=== PATIENT | male | born 1940 | race Caucasian/White ===

== ENCOUNTER 2017-09-26 21:28 | Emergency (ER) | payer MEDICARE ==
[~2017-09-26] VITALS: Ht 193 cm; Wt 90.7 kg
[~2017-09-26 21:28] MED LIST: ALLO100 PO; ALLO300 PO; AMOCLA875; ASPI81CH PO; ATOR40TA PO; Azopt10 ML; Azopt10 ML BOTHEYES; BUME2 PO; BUSP5 PO; CARV25 PO; Coreg12.5 MG PO; FURO20 PO; GABA300 PO; HYDACE5; HYDCHL25 PO; LATA.005SO BOTHEYES; LIDO5TP TOP; LOSA25 PO; MULVITMIND PO; Micro-K10 MEQ; Norco 5-325 Ta1 EACH PO; ONDA4ODT MM; Omeprazole20 M1 PO; POTCHL20ER PO; SPIR25 PO; TIMO.25OPS; TIMO.25OPS BOTHEYES; TRAM50 PO; TRAV.004OP BOTHEYES; Travatan Z5 ML BOTHEYES; WARF5 PO; WARF6 PO
[2017-09-26 21:59] LABS: BASOPHILS ABSOLUTE AUTO 0.05 K/mm3 (0.00-0.23); BASOPHILS PERCENT AUTO 1 % (0-2); EOSINOPHILS ABSOLUTE AUTO 0.15 K/mm3 (0.00-0.68); EOSINOPHILS PERCENT AUTO 2 % (0-6); Hematocrit 38.1 % (37.0-53.0); Hemoglobin 12.7 g/dL (13.5-17.5); IMMATURE GRAN ABSOLUTE AUTO 0.05 K/mm3 (0.00-0.10); IMMATURE GRAN PERCENT AUTO 1 % (0-1); LYMPHOCYTES ABSOLUTE AUTO 1.64 K/mm3 (0.84-5.20); LYMPHOCYTES PERCENT AUTO 21 % (21-46); MONOCYTES ABSOLUTE AUTO 0.69 K/mm3 (0.16-1.47); MONOCYTES PERCENT AUTO 9 % (4-13); Mean Corpuscular HGB 33.7 pg (26.0-34.0); Mean Corpuscular HGB Conc 33.3 g/dL (31.5-36.5); Mean Corpuscular Volume 101 fL (80-100); Mean Platelet Volume 10.6 fL (9.1-12.4); NEUTROPHILS ABSOLUTE AUTO 5.19 K/mm3 (1.96-9.15); NEUTROPHILS PERCENT AUTO 67 % (41-73); Platelet Count 109 K/mm3 (150-400); RDW Coefficient Variation 14.8 % (11.7-14.2); RDW Standard Deviation 55.5 fL (35.1-46.3); Red Blood Cell Count 3.77 M/mm3 (4.30-5.90); White Blood Cell Count 7.77 K/mm3 (4.00-11.30)
[2017-09-26 22:10] LABS: Alanine Aminotransfer (ALT/SGP 24 U/L (12-78); Albumin, Blood 3.3 g/dL (3.4-5.0); Alk Phos 79 U/L (50-136); Anion Gap 7 mmol/L (6-16); Aspartate Aminotrans (AST/SGOT 14 U/L (12-37); Bilirubin, Total 0.5 mg/dL (0.1-1.0); Blood Urea Nitrogen 24 mg/dL (8-24); Bun/Creatinine Ratio 22.2 (12.0-20.0); CO2, Blood 27 mmol/L (21-32); Calcium, Blood 8.9 mg/dL (8.5-10.1); Chloride, Blood 107 mmol/L (98-108); Creatinine, Blood 1.08 mg/dL (0.60-1.20); Globulin, Blood 3.4 g/dL (2.2-4.0); Glomerular Filtration Rate >60 (60-); Glucose, Blood 141 mg/dL (70-99); Potassium, Blood 4.1 mmol/L (3.5-5.5); Sodium, Blood 141 mmol/L (136-145); Total Protein, Blood 6.7 g/dL (6.4-8.2)
[2017-09-26] MEDS ORDERED: WARF5 PO (22:21)
[2017-09-26] MEDS ORDERED: LOSA50 PO (22:22)
[2017-09-26] MEDS ORDERED: CARV25 PO (22:22)
[2017-09-26] MEDS ORDERED: SPIR25 PO (22:22)
[2017-09-26] MEDS ORDERED: BUME2 PO (22:23)
[2017-09-26] MEDS ORDERED: Azopt10 ML BOTHEYES (22:24)
[2017-09-26] MEDS ORDERED: TIMOPTIC 0.25%1 EACH BOTHEYES (22:24)
[2017-09-26] MEDS ORDERED: LATANOPROST2.5 ML BOTHEYES (22:25)
[2017-09-26 22:45] LABS: Troponin I <0.015 ng/mL (0.000-0.040)
[2017-09-26] MEDS ORDERED: Atrovent Inha12.9 GM INH (23:32)
[2017-09-26] MEDS ORDERED: Prednisone50 MG PO (23:32)
[2017-09-26] MEDS ORDERED: ALBU90OI INH (23:32)
== END 2017-09-26 23:40 | disposition home or self-care (01) ==
LOC: ER 21:28
PROVIDERS: Emergency Medicine
DX: J44.1 Chronic obstructive pulmonary disease with (acute) exacerbation (principal); Z79.899 Other long term (current) drug therapy; Z79.01 Long term (current) use of anticoagulants; I48.91 Unspecified atrial fibrillation; I11.0 Hypertensive heart disease with heart failure; I50.9 Heart failure, unspecified; F17.290 Nicotine dependence, other tobacco product, uncomplicated
CPT/HCPCS: 36415; 71046; 80053; 83880; 84484; 85025; 93005; 93010; 94640; 96374; 99283; J1100

== ENCOUNTER 2018-11-14 18:16 | Inpatient (IN) | payer MEDICARE ==
[~2018-11-14] VITALS: Ht 188 cm; Wt 93.7 kg
[~2018-11-14 18:16] MED LIST changes: +ALBU90OI INH; +Atrovent Inha12.9 GM INH; +Prednisone50 MG PO
[2018-11-14 18:42] LABS: BASOPHILS ABSOLUTE AUTO 0.05 K/mm3 (0.00-0.23); BASOPHILS PERCENT AUTO 1 % (0-2); EOSINOPHILS ABSOLUTE AUTO 0.16 K/mm3 (0.00-0.68); EOSINOPHILS PERCENT AUTO 2 % (0-6); Hematocrit 46.6 % (37.0-53.0); Hemoglobin 15.4 g/dL (13.5-17.5); IMMATURE GRAN ABSOLUTE AUTO 0.09 K/mm3 (0.00-0.10); IMMATURE GRAN PERCENT AUTO 1 % (0-1); LYMPHOCYTES PERCENT AUTO 13 % (21-46); MONOCYTES ABSOLUTE AUTO 1.56 K/mm3 (0.16-1.47); MONOCYTES PERCENT AUTO 15 % (4-13); Mean Corpuscular HGB 29.3 pg (26.0-34.0); Mean Corpuscular Volume 89 fL (80-100); Mean Platelet Volume 10.8 fL (9.1-12.4); NEUTROPHILS ABSOLUTE AUTO 7.25 K/mm3 (1.96-9.15); NEUTROPHILS PERCENT AUTO 69 % (41-73); Platelet Count 169 K/mm3 (150-400); RDW Coefficient Variation 20.8 % (11.7-14.2); RDW Standard Deviation 66.6 fL (35.1-46.3); Red Blood Cell Count 5.25 M/mm3 (4.30-5.90); White Blood Cell Count 10.51 K/mm3 (4.00-11.30)
[2018-11-14 19:06] LABS: Albumin, Blood 3.7 g/dL (3.4-5.0); Albumin/Globulin Ratio 1.3 (0.8-1.8); Bilirubin, Total 3.2 mg/dL (0.1-1.0); Calcium, Blood 9.3 mg/dL (8.5-10.1); Creatinine, Blood 2.05 mg/dL (0.60-1.20); Globulin, Blood 2.9 g/dL (2.2-4.0); Total Protein, Blood 6.6 g/dL (6.4-8.2)
[2018-11-14 20:34] LABS: Magnesium, Blood 2.8 mg/dL (1.6-2.4); Phosphorus, Blood 5.7 mg/dL (2.5-4.9); Uric Acid, Blood 13.6 mg/dL (3.5-7.2)
[2018-11-14 20:36] LABS: International Normalized Ratio 1.36
[2018-11-14] MEDS ORDERED: LOSA25 PO (20:53)
[2018-11-14] MEDS ORDERED: FURO40 PO (20:53)
[2018-11-14] MEDS ORDERED: GLIP5 PO (20:53)
[2018-11-14] MEDS ORDERED: ALBU90OI61 INH (21:00)
[2018-11-14] MEDS ORDERED: Pacerone100 MG PO (21:00)
[2018-11-14] MEDS ORDERED: Aspirin EC81 MG PO (21:01)
[2018-11-14] MEDS ORDERED: CARV3.125 PO (21:02)
[2018-11-14] MEDS ORDERED: CLOP75 PO (21:03)
[2018-11-14] MEDS ORDERED: POTCHL10ER PO (21:04)
[2018-11-14] MEDS ORDERED: GABA600 PO (21:04)
[2018-11-14] MEDS ORDERED: Pravachol80 MG PO (21:05)
[2018-11-14] MEDS ORDERED: Zantac150 MG PO (21:06)
[2018-11-14] MEDS ORDERED: TORSE20 PO (21:07)
[2018-11-14] MEDS ORDERED: TIMOLOL MALEATE5 ML BOTHEYES (21:17)
[2018-11-14] MEDS ORDERED: LATANOPROST2.5 ML BOTHEYES (21:18)
[2018-11-14] MEDS ORDERED: Azopt10 ML BOTHEYES (21:18)
[2018-11-15 02:20] LABS: BASOPHILS ABSOLUTE AUTO 0.04 K/mm3 (0.00-0.23); BASOPHILS PERCENT AUTO 0 % (0-2); EOSINOPHILS PERCENT AUTO 1 % (0-6); Hematocrit 43.7 % (37.0-53.0); Hemoglobin 14.5 g/dL (13.5-17.5); IMMATURE GRAN ABSOLUTE AUTO 0.09 K/mm3 (0.00-0.10); IMMATURE GRAN PERCENT AUTO 1 % (0-1); LYMPHOCYTES ABSOLUTE AUTO 1.24 K/mm3 (0.84-5.20); LYMPHOCYTES PERCENT AUTO 11 % (21-46); MONOCYTES PERCENT AUTO 13 % (4-13); Mean Corpuscular HGB 29.7 pg (26.0-34.0); Mean Corpuscular HGB Conc 33.2 g/dL (31.5-36.5); Mean Corpuscular Volume 89 fL (80-100); Mean Platelet Volume 10.8 fL (9.1-12.4); NEUTROPHILS PERCENT AUTO 74 % (41-73); Platelet Count 146 K/mm3 (150-400); RDW Coefficient Variation 20.7 % (11.7-14.2); RDW Standard Deviation 67.7 fL (35.1-46.3); Red Blood Cell Count 4.89 M/mm3 (4.30-5.90); White Blood Cell Count 11.47 K/mm3 (4.00-11.30)
[2018-11-15 02:37] LABS: Bun/Creatinine Ratio 41.9 (12.0-20.0); Calcium, Blood 9.1 mg/dL (8.5-10.1); Creatinine, Blood 2.1 mg/dL (0.60-1.20); Potassium, Blood 4.7 mmol/L (3.5-5.5)
--- NOTE | 2018-11-15 07:17 | NUR ---
SHIFT SUMMARY PT SLEEPING IN ROOM COMFORTABLY AT THIS TIME. NO ACUTE CHANGES IN STATUS SINCE ARRIVAL TO UNIT. PT LACTIC ACID HAS IMPROVED. RESP EVEN UNLABORED ON RA W/ SATS >92%. DENIES CP. REPORTS L HIP PAIN BETTER WHEN NOT MOVING. PT IS SBA TO USE URINAL AT BEDSIDE. DENIES CP. NS INFUSING IN PIV AT 100ML/HR, PT TOLERATING WELL. CALL LIGHT IN REACH BED ALARM ON FOR SAFETY.
--- NOTE | 2018-11-15 08:57 | NUR ---
AM NOTE. ASSUMED CARE OF PT APROX 0700. PT IS A&Ox3 UNABLE TO STATE THE DATE. PT IS VERY UPSET/ANGRY THAT HIS CURRENT SITUATION AND HIS MOMENTS OF CONFUSION. PT WAS ADMITTED FOR MANE, PT HAS 4+ PITTING EDEMA TO HIS BLE. PT'S L/S CLEAR T/O BUT DIM IN THE BASES. BED ALARM IS ON TO PREVENET FALLS. CALL LIGHT IN REACH, BED IS LOCKED AND LOW WILL CONTINUE TO MONITOR.
[2018-11-15 15:23] LABS: Bun/Creatinine Ratio 42.9 (12.0-20.0); Creatinine, Blood 1.96 mg/dL (0.60-1.20); Potassium, Blood 4.1 mmol/L (3.5-5.5)
--- NOTE | 2018-11-15 18:32 | NUR ---
SHIFT SUMMARY. NO ACUTE CHANGES NOTED THIS SHIFT. PT HAS BEEN HYPOTENSIVE THIS SHIFT BUT NOT SYMPTOMATIC. PT HAS STATED MULTIPLE TIMES THIS SHIFT "I JUST DON'T FEEL GOOD." PT C/O OF NAUSEA, PT WAS MEDICATED PER EMAR. PT ALSO C/O OF "BURNING" IN HIS MOUTH, PROVIDER WAS CALLED AND ORDERS OBTAINED. PT STILL C/O OF SEVERE PAIN TO HIS LEFT HIP, PT WAS MEDICATED PER EMAR, HOWEVER PT STATED THAT "IT DIDN'T HELP." HEAT AND COLD PACKS WERE APPLIED BUT AGAIN PT STATED IT DID NOT HELP. BACK MASSAGE WAS PROVIDED TO THE PT THIS SHIFT. CALL LIGHT IN REACH, BED IS LOCKED AND LOW WILL CONTINUE TO MONITOR.
--- NOTE | 2018-11-15 19:45 | NUR ---
ASSUMED CARE PT SLEEPING IN ROOM COMFORTABLY AT THIS TIME. PER DAY SHIFT PT HAD NO ACUTE CHANGES IN STATUS. PT WAS HYPOTENSIVE T/O DAY AND CORREG WAS HELD PER PARAMETERS. PT EDEMA ON BLE APPEARS TO HAVE INCREASED. PT REFUSING TO HAVE LEGS ELEVATED FURTHER, WILL ATTEMPT AGAIN LATTER. PT REPORTED SORE THROAT, TODAY. PER DAY SHIFT PROVIDER ORDERED MAGIC MOUTHWASH, PT TOLERATES FAIR. RESP EVEN UNLABORED ON RA W/ SATS >92%. DENIES NEEDS. CALL LIGHT IN REACH.
[2018-11-16 04:00] LABS: BASOPHILS ABSOLUTE AUTO 0.02 K/mm3 (0.00-0.23); BASOPHILS PERCENT AUTO 0 % (0-2); EOSINOPHILS ABSOLUTE AUTO 0.12 K/mm3 (0.00-0.68); EOSINOPHILS PERCENT AUTO 1 % (0-6); Hematocrit 42.9 % (37.0-53.0); Hemoglobin 14.3 g/dL (13.5-17.5); IMMATURE GRAN ABSOLUTE AUTO 0.09 K/mm3 (0.00-0.10); IMMATURE GRAN PERCENT AUTO 1 % (0-1); LYMPHOCYTES ABSOLUTE AUTO 1.08 K/mm3 (0.84-5.20); LYMPHOCYTES PERCENT AUTO 10 % (21-46); MONOCYTES ABSOLUTE AUTO 1.46 K/mm3 (0.16-1.47); MONOCYTES PERCENT AUTO 14 % (4-13); Mean Corpuscular HGB 28.9 pg (26.0-34.0); Mean Corpuscular HGB Conc 33.3 g/dL (31.5-36.5); Mean Corpuscular Volume 87 fL (80-100); Mean Platelet Volume 11.1 fL (9.1-12.4); NEUTROPHILS PERCENT AUTO 74 % (41-73); Platelet Count 138 K/mm3 (150-400); RDW Coefficient Variation 20.8 % (11.7-14.2); RDW Standard Deviation 63.7 fL (35.1-46.3); Red Blood Cell Count 4.95 M/mm3 (4.30-5.90); White Blood Cell Count 10.77 K/mm3 (4.00-11.30)
[2018-11-16 04:16] LABS: Bun/Creatinine Ratio 45.4 (12.0-20.0); Calcium, Blood 8.7 mg/dL (8.5-10.1); Creatinine, Blood 1.74 mg/dL (0.60-1.20); Magnesium, Blood 2.3 mg/dL (1.6-2.4)
--- NOTE | 2018-11-16 05:34 | NUR ---
SHIFT SUMMARY PT SLEEPING IN ROOM COMFORTABLY AT THIS TIME. NO ACUTE CHANGES IN STATUS T/O NIGHT. PT DID HAVE A SHORT NOSE BLEED DURING THE NIGHT. PT REPORTS "THIS HAPPENS EVERY TIME THEY GIVE ME ASPIRIN, I DON'T WANT ANY MORE!". NO OTHER CHANGES IN STATUS. PT SLEPT WELL T/O NIGHT. NS FINISHED INFUSING AND PT NOW SL. RESP EVEN UNLABORED ON RA W/ SATS >92%. PT DENIES CP, REPORTS SOME MINOR PAIN TO L HIP BUT REFUSED PAIN MEDS, PT REPORTS "NONE OF THAT WORKS FOR ME ANYWAY". PT REPOSITIONED FOR COMFORT, REPORTS PAIN LESSENED. DENIES OTHER NEEDS. CALL LIGHT IN REACH.
[2018-11-16 10:18] LABS: Uric Acid, Blood 12.6 mg/dL (3.5-7.2)
--- NOTE | 2018-11-16 18:33 | NUR ---
SHIFT SUMMARY. PT HAS BEEN VERY TIRED ALL SHIFT. PT HAS SLEPT OFF AND ON FOR MOST OF THE SHIFT. PT'S BP HAS BEEN HYPOTENSIVE, PT'S DAUGHTER STATES THIS IS NORMAL FOR HIM. PT HAS C/O OF SEVERE PAIN T/O THIS SHIFT. PT HAS BEEN MEDICATED PER EMAR. PROVIDER AND PALLIATIVE CARE ALSO INVOLVED IN AN ATTEMPT TO HELP WITH PAIN CONTROL. NEW ORDERS OBTAINED AND WILL MEDICATE THE PT PER ORDERS/EMAR. PT GOT UP AND WALKED TO THE BATHROOM W/FWW, PT HAD TO STOP MULTIPLE TIMES TO REST BEFORE MAKING IT TO THE TOILET. PT DID NOT HAVE A BM TODAY. CALL LIGHT IN REACH, BED IS LOCKED AND LOW WITH BED ALARM ON WILL CONTINUE TO MONITOR UNTIL REPORT IS GIVEN TO ONCOMING RN.
[2018-11-16 20:40] LABS: Potassium, Blood 3.8 mmol/L (3.5-5.5)
[2018-11-16 22:32] LABS: Source, Urine Clean Catch
[2018-11-16 22:37] LABS: Bilirubin, Urine Neg (Neg); Blood, Urine Neg (Neg); Glucose Qualitative, Urine Neg (Neg); Ketones, Urine Neg (Neg); Leukocyte Esterase, Urine 1+ (Neg); Nitrite, Urine Neg (Neg); Protein, Urine Neg (Neg); Specific Gravity, Urine 1.015 (1.003-1.022); Urobilinogen, Urine NORM (Normal)
[2018-11-16 22:43] LABS: Appearance, Urine Clear (Clear); Color, Urine Yellow (P-Yellow)
[2018-11-16 22:44] LABS: Bacteria Few /hpf; Hyaline Casts 0-2 /lpf (0-2); Red Blood Cells, Urine Not Seen /hpf (0-2); Squamous Epithelial Cells Rare /hpf (Few); White Blood Cells, Urine 0-2 /hpf (0-5)
--- NOTE | 2018-11-17 02:16 | NUR ---
ASSUMED CARE OF PATIENT AT [facility] 191 FROM VERÓNICA Crooks RN. PATIENT ALERT AND ORIENTED TO SELF, LOCATION AND EVENT. PATIENT VERY HARD OF HEARING; CAN BE SLOW TO RESPOND; PATIENT CONFUSED AT TIMES. PATIENT WEAK; LEGS HAVE PITTING EDEMA. PATIENT REPORTS PAIN; REQUESTED "NERVE PILL"; PATIENT HAS SCHEDULED GABAPENTIN FOR PM; REFUSED NEED FOR PAIN MEDICATION; PATIENT DENIES NUMBNESS, TINGLING, DIZZINESS AND NAUSEA. PATIENT UNCOMFORTABLE FIRST PART OF SHIFT; REQUESTED TO BE REPOSISTIONED FREQUENTLY AND TO HAVE FOAM REMOVED FROM BED. PATIENT MADE COMMENT ABOUT BEING "TIRED OF ALL THIS". DR. BHAT CALLED SHORTLY AFTER 2100; ORDERS RECIEVED; SODIUM 125 FROM 124; POTASSIUM DROPPED TO 3.8; 24 HOUR URINE STARTED AT 0130; REPORTED DURING DAYSHIFT THAT PATIENT HAD 250ML AND TWO UNMEASURED URINE; PATIENT HAS HAD 900ML URINE; UA SENT. PATIENT REPORTS WHEN GIVING IV LASIX THAT "THAT'S WHAT CAUSED MY LEGS TO QUICK WORKING". PACED ON TELE; OXYGEN SATURATION ABOVE 90% ON ROOM AIR; PIV S/L. PATIENT ON 1000ML FLUID RESTRICTION. PATIENT CURRENTLY RESTING IN BED; CALL LIGHT IN REACH; BED IN LOWEST POSISTION; BED ALARM; WILL CONTINUE TO MONITOR AND ASSESS UNTIL END OF SHIFT.
[2018-11-17 04:18] LABS: Hematocrit 43.2 % (37.0-53.0); Hemoglobin 14.3 g/dL (13.5-17.5)
[2018-11-17 04:32] LABS: Albumin, Blood 3.3 g/dL (3.4-5.0); Anion Gap 12 mmol/L (6-16); Blood Urea Nitrogen 68 mg/dL (8-24); CO2, Blood 24 mmol/L (21-32); Calcium, Blood 8.7 mg/dL (8.5-10.1); Chloride, Blood 90 mmol/L (98-108); Creatinine, Blood 1.58 mg/dL (0.60-1.20); Glomerular Filtration Rate 45 (60-); Glucose, Blood 130 mg/dL (70-99); Magnesium, Blood 2.3 mg/dL (1.6-2.4); Phosphorus, Blood 2.8 mg/dL (2.5-4.9); Potassium, Blood 3.2 mmol/L (3.5-5.5); Sodium, Blood 126 mmol/L (136-145)
--- NOTE | 2018-11-17 18:44 | NUR ---
SHIFT SUMMARY PT RESTING IN BED THROUGHOUT THE DAY. UP TO RECLINER FOR MEALS, PT TOLERATING WELL. VSS. ALERT AND ORIENTED X3. C/O BACK / HIP PAIN 10/22, MEDICATED WITH PRN PAIN MEDS. LUNG SOUNDS CLEAR, DIMINISHED BASES. 3+ PITTING EDEMA TO BLE. WILL CONTINUE TO MONITOR.
[2018-11-17 20:32] LABS: Potassium, Blood 3.3 mmol/L (3.5-5.5)
--- NOTE | 2018-11-18 01:21 | NUR ---
ASSUMED CARE OF PATIENT AT [facility] 191 FROM AHSAN Crooks RN. PATIENT ALERT AND ORIENTED TO SELF, LOCATION AND EVENT. PATIENT VERY HARD OF HEARING; CAN BE SLOW TO RESPOND; IRRITABLE AT TIMES. PATIENT WEAK; BLE EDEMA; PATIENT REPORTS LEGS LOOK BETTER AND "I CAN LIFT MY LEGS". PATIENT REPORTS "FEELS LIKE MY MOUTH IF FULL OF BLISTERS"; NO BLISTERS NOTED; REPORTS HE HAD SOMETHING LIKE THIS BEFORE AND NEEDED ANTIBIOTICS; REFUSED PRN MEDICATION; ENCOURAGED PATIENT TO BRUSH TEETH; PATIENT REPORTS FEELING BETTER; PATIENT DENIES PAIN, NUMBNESS, TINGLING, DIZZINESS AND NAUSEA. PATIENT REPORTS SMALL AMOUNT OF BLOOD COMING FROM NOSE ONCE. CALL PLACED TO DR. BHAT PER REQUEST AFTER 2100; ORDERS RECIEVED; SODIUM 124; POTASSIUM 3.3; 24 HOUR URINE WILL BE COMPLETED AT 0130. PACED ON TELE; OXYGEN SATURATION ABOVE 90% ON ROOM AIR; PIV S/L. PATIENT ON 1000ML FLUID RESTRICTION. PATIENT CURRENTLY RESTING IN BED; CALL LIGHT IN REACH; BED IN LOWEST POSISTION; BED ALARM; WILL CONTINUE TO MONITOR AND ASSESS UNTIL END OF SHIFT.
[2018-11-18 02:52] LABS: Protein, Urine Quantitative <5.0 mg/dL (0.0-11.9)
[2018-11-18 04:08] LABS: Hematocrit 45.8 % (37.0-53.0); Hemoglobin 15.1 g/dL (13.5-17.5)
[2018-11-18 04:27] LABS: Magnesium, Blood 2.3 mg/dL (1.6-2.4)
[2018-11-18 04:28] LABS: Albumin, Blood 3.4 g/dL (3.4-5.0); Anion Gap 10 mmol/L (6-16); Blood Urea Nitrogen 59 mg/dL (8-24); Bun/Creatinine Ratio 42.1 (12.0-20.0); CO2, Blood 24 mmol/L (21-32); Calcium, Blood 8.8 mg/dL (8.5-10.1); Chloride, Blood 91 mmol/L (98-108); Glomerular Filtration Rate 52 (60-); Glucose, Blood 153 mg/dL (70-99); Phosphorus, Blood 2.8 mg/dL (2.5-4.9); Potassium, Blood 3.4 mmol/L (3.5-5.5); Sodium, Blood 125 mmol/L (136-145)
--- NOTE | 2018-11-18 06:20 | NUR ---
PATIENT REPORTED THIS MORNING THAT HE DIDNT FEEL GOOD; REPORTED HE FELT LIKE HE WAS GOING TO THROW UP; MEDICATED PER EMAR; REPORTS FEELING BETTER. VSS. NO OTHER ACUTE CHANGES TO REPORT. PATIENT SLEPT ABOUT EIGHT HOURS LAST NIGHT. 24 HOUR URINE PROTIEN COMPLETE. WILL CONTINUE TO MONITOR AND ASSESS UNTIL END OF SHIFT.
[2018-11-18 16:15] LABS: Potassium, Blood 4.3 mmol/L (3.5-5.5)
--- NOTE | 2018-11-18 18:34 | NUR ---
SHIFT SUMMARY NO ACUTE CHANGES THIS SHIFT. VSS. PT INTERMITTENTLY NAUSEATED T/O SHIFT. RECEIVING REGLAN AND ZOFRAN PRN. NO EMESIS. DECREASED APPETITE. PT DID RECEIVE BOWEL CARE SUPPOSITORY AND ENEMA AND DID HAVE 2 BMS. UP WITH 1 SBA USING THE WALKER TO THE BSC. PT DENIES PAIN. LUNG SOUNDS CLEAR BUT DIMINISHED IN THE BASES. POTASSIUM GIVEN TODAY WITH REPEAT LABS IN THE MORNING. LOW URINE OUTPUT. DR. BHAT NOTIFIED AND NEW ORDERS PLACED. PT USES CALL LIGHT APPROPRIATELY.
--- NOTE | 2018-11-18 22:13 | NUR ---
ASSUMED CARE OF PATIENT AT [facility] 1910 FROM YAHAIAR Lujan RN. PATIENT ALERT AND ORIENTED TO SELF, LOCATION AND EVENT. PATIENT VERY HARD OF HEARING; CAN BE SLOW TO RESPOND; IRRITABLE AT TIMES. PATIENT WEAK; BLE EDEMA. PATIENT INCONTINENT OF SMALL AMOUNTS OF STOOL; ATTENDS PLACED; URGENCY TO GO BUT MOSTLY HAS GAS; PATIENT REPORTEDLY HAD 2 BM TODAY AFTER BOWEL CARE; PCT KASEY REPORTS HEMORRHOIDS. PATIENT DENIES PAIN, NUMBNESS, TINGLING, DIZZINESS AND NAUSEA. 100% PACED ON TELE; OXYGEN SATURATION ABOVE 90% ON ROOM AIR; PIV S/L. PATIENT ON 1000ML FLUID RESTRICTION. PATIENT CURRENTLY RESTING IN BED; CALL LIGHT IN REACH; BED IN LOWEST POSISTION; BED ALARM; WILL CONTINUE TO MONITOR AND ASSESS UNTIL END OF SHIFT.
[2018-11-19 03:51] LABS: Hematocrit 44.2 % (37.0-53.0); Hemoglobin 14.4 g/dL (13.5-17.5)
[2018-11-19 04:08] LABS: Albumin, Blood 3.3 g/dL (3.4-5.0); Anion Gap 10 mmol/L (6-16); Blood Urea Nitrogen 65 mg/dL (8-24); Bun/Creatinine Ratio 40.9 (12.0-20.0); CO2, Blood 25 mmol/L (21-32); Calcium, Blood 8.8 mg/dL (8.5-10.1); Chloride, Blood 90 mmol/L (98-108); Creatinine, Blood 1.59 mg/dL (0.60-1.20); Glomerular Filtration Rate 45 (60-); Glucose, Blood 139 mg/dL (70-99); Magnesium, Blood 2.2 mg/dL (1.6-2.4); Phosphorus, Blood 2.9 mg/dL (2.5-4.9); Potassium, Blood 3.7 mmol/L (3.5-5.5); Sodium, Blood 125 mmol/L (136-145)
--- NOTE | 2018-11-19 06:51 | NUR ---
PATIENT SLEPT ABOUT EIGHT HOURS; INCONTINENT OF URINE ONCE LAST NIGHT; VSS. PATIENT CURRENTLY SITTING IN RECLINER. WILL CONTINUE TO MONITOR AND ASSESS UNTIL END OF SHIFT.
--- NOTE | 2018-11-19 19:23 | NUR ---
SHIFT SUMMARY PT RESTING IN BED THROUGHOUT THE DAY. VSS. ALERT AND ORIENTED, KNOWS THE MONTH, BUT STATES THAT IT IS 2018. REORIENTED EASILY AND FOLLOWING COMMANDS APPROPRIATELY. PT IS VERY HARD OF HEARING AND GET IRRITATED EASILY. C/O LEFT HIP / BACK PAIN 10/22, MEDICATED WITH PRN PAIN MEDS. LUNG SOUNDS DIMINISHED THROUGHOUT. C/O NUMBNESS / TINGLING TO BILATERAL FEET. 2+ PITTING EDEMA TO BLE, 1+ PITTING EDEMA TO BILATERAL FEET, AND NON-PITTING EDEMA TO BILATERAL ARMS. PT UP TO BEDSIDE COMMODE FOR BM TODAY, PT HAD A HARD LARGE STOOL, NEW ORDERS FOR STOOL SOFTENERS RECEIVED. LARGE HEMORRHOID NOTED, HEMORRHOID CREAM APPLIED. PACED RATE OF 60s ON TELEMETRY. VOIDING PER BEDSIDE COMMODE AND URINAL. PT C/O NAUSEA THROUGHOUT THE DAY, MEDICATED WITH PRN MEDS. PT NOTED TO HAVE VERY POOR APPETITE TODAY D/T NAUSEA.
[2018-11-20 03:32] LABS: Hematocrit 46.3 % (37.0-53.0); Hemoglobin 15.2 g/dL (13.5-17.5)
[2018-11-20 03:51] LABS: Albumin, Blood 3.3 g/dL (3.4-5.0); Anion Gap 12 mmol/L (6-16); Blood Urea Nitrogen 69 mg/dL (8-24); Bun/Creatinine Ratio 36.3 (12.0-20.0); CO2, Blood 24 mmol/L (21-32); Calcium, Blood 8.7 mg/dL (8.5-10.1); Chloride, Blood 84 mmol/L (98-108); Glomerular Filtration Rate 36 (60-); Glucose, Blood 149 mg/dL (70-99); Magnesium, Blood 2.2 mg/dL (1.6-2.4); Phosphorus, Blood 3.7 mg/dL (2.5-4.9); Potassium, Blood 4.4 mmol/L (3.5-5.5); Sodium, Blood 120 mmol/L (136-145)
--- NOTE | 2018-11-20 04:53 | NUR ---
END OF SHIFT SUMMARY PT ALERT AND SPEAKING WITH STAFF. STATES CORRECT DATE SOMETIMES BUT GENERALLY FORGETS MONTH OR YEAR. PT HAS BEEN IRRITABL BUT COOPERATIVE. PT EXPRESSES NEEDS TO NURSE APPROPRIATELY. THIS NURSE HAS BEEN MEDICATING PT'S HIP PAIN WITH TRAMADOL PER ORDERS. PT CONTINUES TO COMPLAIN ABOUT PAIN. PT HAS BEEN TURNED THIS SHIFT MULTIPLE TIMES HE MAKES LITTLE EFFORT AT TIMES TO MOVE R/T HIP AND THE FACT THAT HE HAS A REDDENED AREA ON COCCYX, MEPILEX IN PLACE ON COCCYX AND BILAT ELBOWS PRECAUTION. PT REMIANS ON 1200L FLUID RESTRICTION, DOES NOT TOLERATE THIS WELL AND BECOMES IRATE ABOUT IT AT TIMES. THIS RN SPOKE WITH DAUGHTER. STEVEN, ABOUT PT. DAUGHTER STATES THE REASON THIS PT ISN'T ON NARCOTIC PAIN MEDS IS THAT HE WAS "EXTREMELY ADDICTED TO THEM AND HAD TO GO THROUGH [facility] TO GET OF OF THEM WITHIN THE LAST TWO YEARS." DAUGHTER ALSO STATES THAT HE DOESN'T REACT WELL TO THEM MENTALLY/PHYSICALLY. PT AWARE OF PAIN MEDICATION LIMITATIONS WOTH HIS MANE. PT USES CALL LIGHT APPROPRIATELY. CALL LIGHT WITHIN REACH AT ALL TIMES. WILL CONTINUE TO MONITOR PT UNTIL SHIFT CHANGE. LABS NOTED TO SHOW INCREASED CREATININE AND LOWERED NA, AWAITING TO SEE IF DR BHAT PLACES ORDERS, IF NOT WILL CALL
--- NOTE | 2018-11-20 07:32 | NUR ---
HOME BHAT VIEWS LABS. PLACES ORDERS TO INCREAS BUMEX DOSING TO TID FROM BID. IMNCREASES FLUID RESTRICTION TO 1300ML FROM 1200ML.
--- NOTE | 2018-11-20 18:37 | NUR ---
called by shoaib to review pain care. strategies given gabipentin advanced and prn med give. Theraputic talk and touch with patient. he refused cold or heat will encourage lidocain. Hope is with medication he will mobilize and get relief.
--- NOTE | 2018-11-20 18:39 | NUR ---
END OF SHIFT SUMMARY; PT VERY PAINFULL MUCH OF DAY. WRITHING ON BED. ICE HEAT AND TRAMADOL TRIED WITH MINIMAL RESULTS. PT NOTED TO BE BEGGING STAFF FOR PAIN MEDICATION OR PAIN RELIEF OF ANY KIND DURING DAY. IS CALLED AND ALEAH PALLIATIVE CARE COMES TO PATIENT ROOM TO EVAL PATIENT. PT APPEARS TO HAVE DELIRIUM FROM PAIN TODAY. IS TRYING TO GET OUT OF BED. HOWEVER PATIENT IS UNABLE TO STAND AND IS FALL RISK. INCREASES GABAPENTIN TO TID AND ORDERS ONE HYDROCODONE 10/325 PO NOW FOR PAIN. PT IS ABLE TO EAT DINNER AND IS NOTED TO BE RESTING COMFORTABLY WITHIN MINIUTES OF RECEIVING THIS PAIN MEDICATION. HE IS ABLE TO ASSIST WITH TURNS AND EATS MUCH OF EVENING MEAL. WILL PASS ON TO NOC SHIFT IN REPORT.
--- NOTE | 2018-11-21 04:59 | NUR ---
Patient administration intern light frequently to be pulled up and reposition. Patient reposition every two hours and sometimes hourly. Patient appears slightly confused on times. Used emesis bag to urinate in. Patient had a large incotinence in bed. Bedding change and patient cleaned of incotinence. Patient able to assist in bed slightly. Patient very weak and is a two assist in bed. Patient has tossed his feet out of bed twice attempting to sit up at bedside. Bed alarm on.
--- NOTE | 2018-11-21 06:27 | NUR ---
DR. BHAT IN ROOM ORDER FOR STAT LABS ( H&H, RENAL, MAG) AND TO BLADDER SCAN AND CALL FOR >200. PATIENT BLADDER SCAN IS 117CC.
[2018-11-21 06:54] LABS: Hematocrit 46.4 % (37.0-53.0); Hemoglobin 15.3 g/dL (13.5-17.5)
[2018-11-21 07:13] LABS: Magnesium, Blood 2.4 mg/dL (1.6-2.4)
[2018-11-21 07:33] LABS: Albumin, Blood 3.3 g/dL (3.4-5.0); Anion Gap 16 mmol/L (6-16); Blood Urea Nitrogen 81 mg/dL (8-24); Bun/Creatinine Ratio 33.5 (12.0-20.0); CO2, Blood 20 mmol/L (21-32); Calcium, Blood 8.8 mg/dL (8.5-10.1); Chloride, Blood 82 mmol/L (98-108); Creatinine, Blood 2.42 mg/dL (0.60-1.20); Glomerular Filtration Rate 28 (60-); Glucose, Blood 132 mg/dL (70-99); Phosphorus, Blood 4.7 mg/dL (2.5-4.9); Potassium, Blood 4.7 mmol/L (3.5-5.5)
[2018-11-21 07:45] LABS: Sodium, Blood 118 mmol/L (136-145)
--- NOTE | 2018-11-21 07:55 | NUR ---
PT TO BE TRANSFERRED TO ICU. ATTEMPT TO CALL REPORT. MONICO MCCORMICK WILL CALL BACK.
--- NOTE | 2018-11-21 08:08 | NUR ---
CRITICAL LAB CALLED TO SODIUM 118. TRANSFER PATIENT TO ICU. GIVE 3% SODIUM 25ML/HR. STAT LABS 2 HOURS AFTER START OF INFUSION CALL HOME WITH RESULTS.
--- NOTE | 2018-11-21 09:00 | NUR ---
INITIAL ASSESSMENT PATIENT ARRIVED TO UNIT AT 0835 FROM PCU 07. PATIENT IRRITABLE, ANXIOUS BUT COOPERATIVE. PATIENT ALERT AND ORIENTED EXCEPT TO DATE AND EVENT. PATIENT VERY [place]. PATIENT AFEBRILE. PATIENT HAS PAIN IN L HIP BUT SEEMS MUCH MORE CONCERNED WITH GETTING SOME WATER THAN THE PAIN. PATIENT TREMULOUS IN BUES AND UPPER BODY. PATIENT SATTING 90% AND GREATER ON RA. LUNGS CLEAR T/O. PATIENT 100% VENTRICALLY PLACED AND OCCASIONALLY ATRIALLY PACED. HR 50S TO 60S. SBP IN THE 80S. PATIENT STATES THAT HIS NORMAL SBP IS 80S TO 90S. PULSES FAINT IN BILAT FEET. 2+ EDEMA NOTED IN BLES AND BILAT FEET. SCDS PLACED. ABDOMEN SOFT, NONTENDER, SOFT, WITH HYPERACTIVE BS. LAST BM DOCUMENTED ON THE . PATIENT OCCASIONALLY INCONTINENT- ATTENDS IN PLACE. URINE MAMADOU IN COLOR. PATIENT ON 1300 ML FLUID RESTRICTION. SKIN FRAGILE. SCATTERED BRUISES AND SCABS T/O BODY. COCCYX REDDENED. EXTREMITIES COLD. DIGITS CYANOTIC, HOWEVER CAP REFILL IS LESS THAN 3 SECONDS. PACEMAKER TO L CHEST WALL. SKINFOLDS IN GROIN REDDENED- NYSTATIN ORDERED. 3% SODIUM STARTED AT 25 MLS/ HOUR. BED LOW, CALL LIGHT IN REACH. PATIENT ORIENTED TO UNIT, ROOM AND CALL SYSTEM. WILL CONTINUE TO MONITOR PATIENT FREQUENTLY THROUGHOUT SHIFT.
--- NOTE | 2018-11-21 12:01 | NUR ---
DR. BHAT CALLED AND UPDATED THAT SODIUM LAB CAME BACK AT 120 FROM 118. STATES TO CONTINUE WITH 3% SODIUM DRIP AT SAME RATE AND FOR STAT SODIUM LEVEL TO BE DONE AT 1500. INFORMED THAT PATIENT'S SBPS HAVE BEEN IN 80S. SCHEDULED MIDODRINE DOSE INCREASED.
--- NOTE | 2018-11-21 12:11 | NUR ---
Pal Care visit - Case conferenced with pt's RN re: pain, mentation, meds avaialable to tx pain and status before visit. Pt is somnolent and can say that he is sleepy but is arousable. He is very thirsty on 1000ml/24hr fluid restriction. He was moved to ICU due to sodium level of 118 and change in status. Pt is able to report continued left hip pain 6/10 and states he can tolerate level 4 pain. He is able to give his name and prior to medication administration of Ultram 50mg ordered q6 hr prn. He is able to sip from a cup held for him without choking. He was able to sip from a straw but it was very difficult for him to do that. Pt was repositioned in bed for comfort with another nurse. When I attempted to continue the conversation he said, "I'm really sleepy". Pt has 2-3+ pitting edema of mo LE up to thigh. Pt was given cup with measured ice water allotment for day shift. RN aware and present for much of my visit. No family present at this time. [facility] care will try to connect with family and catch the pt more awake later today or tomorrow.
--- NOTE | 2018-11-21 12:22 | NUR ---
PATIENT REMAINS MOSTLY ALERT AND ORIENTED. AFEBRILE. PATIENT GIVEN PRN TRAMADOL FOR COMPLAINT OF L HIP PAIN. PATIENT AFEBRILE. PATIENT REMAINS SATTING WELL ON RA. PATIENT REMAINS 100% PACED, HR 50S TO 70S. SBP IN THE 90S. NO OTHER ACUTE CHANGES TO NOTE ON AT THIS TIME. WILL CONTINUE TO MONITOR.
--- NOTE | 2018-11-21 15:45 | NUR ---
DR. BRISENO CALLED AND INFORMED OF PATIENT'S COMPLAINT OF PAIN "EVERYWHERE" AND THAT NO OTHER MEDICATIONS AVAILABLE ON PATIENT'S EMAR/ NONPHARMACOLOGIC PAIN RELIEVERS HAVE NOT BEEN WORKING. ALSO INFORMED THAT PATIENT'S SBP IN THE 80S. ORDERS RECEIVED.
--- NOTE | 2018-11-21 16:06 | NUR ---
CALLED AND INFORMED DR. BHAT OF SODIUM LEVEL BACK AT 120. DR. BHAT ALSO INFORMED OF NEW PAIN MED ORDER AND 250 CC NS BOLUS ORDERED BY HOSPITALIST. DR. BHAT AGREES WITH.
--- NOTE | 2018-11-21 16:18 | NUR ---
PATIENT REMAINS MOSTLY ALERT AND ORIENTED. PATIENT REMAINS ANXIOUS AND IRRITABLE AT TIMES. PATIENT AFEBRILE. PATIENT SATTING 90% AND GREATER ON RA. PATIENT PACED, HR 50S TO 60S. SBP IN THE 90S. PRN NORCO ORDER RECIEVED EARLIER BUT SHORTLY AFTER RECEIVING ORDER PATIENT WAS NO LONGER COMPLAINING OF PAIN. NO OTHER ACUTE CHANGES TO NOTE ON AT THIS TIME. WILL CONTINUE TO MONITOR.
--- NOTE | 2018-11-21 19:00 | NUR ---
ASSUMED CARE ASSUMED CARE OF PATIENT. RESTING QUIETLY WHEN UNDISTURBED. ROUSES TO LOUD VERBAL STIMULI. ORIENTED TO SELF AND TO THE FACT THAT HE IS IN THE HOSPITAL. FOLLOWS SIMPLE COMMANDS. FORGET AND REQUIRES FREQUENT REMINDERS OF PLAN OF CARE. FREQUENTLY ASKS FOR WATER- 1300CC FLUID RESTRICTION REMAINS IN PLACE. SWALLOWS WITHOUT DIFFICULTY. MOVES ALL EXTREMITIES WEAKLY. BED ALARM IS ON. CONTINUES TO C/O LEFT HIP PAIN WELL GENERAL PAIN. REPOSITIONED FOR COMFORT. MONITOR SHOWS 100% PACED RHYTHM AT THIS TIME. SBP 80-90s. ATTENDS IN PLACE. PAS OFF AT THIS TIME AT PT'S REQUEST. 3%NS INFUSING AT 35CC/HR PER ORDER VIA #20 IV IN LEFT AC. SEE SHIFT ASSESSMENT FOR FULL ASSESSMENT.
--- NOTE | 2018-11-21 19:19 | NUR ---
SHIFT SUMMARY PATIENT REMAINED MOSTLY ALERT AND ORIENTED T/O SHIFT. PATIENT VERY [place]. PATIENT IRRITABLE AND ANXIOUS AT TIMES. PATIENT REMAINED AFEBRILE. PATIENT HAD COMPLAINT OF L HIP PAIN AND PAIN "EVERYWHERE" DURING SHIFT. PATIENT RECEIVED PRN TRAMADOL ONE TIME AND SLEPT AFTER. ORDER FOR NORCO RECEIVED BUT BUT SHORTLY AFTER RECEIVING PATIENT WAS NO LONGER COMPLAINING OF PAIN SO WAS NOT GIVEN. PATIENT CONTINUED TO ASK FOR WATER, ALTHOUGH FREQUENCY HAS DECREASED. PATIENT SATTED WELL ON RA MOST OF SHIFT. PATIENT PLACED ON 2 L NC TO KEEP SATS 90% AND GREATER WHILE PATIENT SLEEPING SOUNDLY AFTER PRN PAIN DIGITAL RESEARCH ANALYST. LUNGS REMAINED CLEAR T/O. PATIENT REMAINED 100% V PACED AND OCCASIONALLY A PACED. HR 50S TO 70S. SBP 80S TO 90S. PATIENT GIVEN OT 250 CC NS BOLUS TO ASSIST WITH SOFT BP. NO CHANGE IN EDEMA. PATIENT DID NOT HAVE BM THIS SHIFT. PATIENT TOLERATING SOFT FOOD AND FLUID AT THIS TIME. PATIENT HAS 1300 FLUID RESTRICTION. ATTENDS IN PLACE FOR OCCASIONAL INCONTINENCE. 400 CC MAMADOU COLORED URINE OUT INTO URINAL WITH ASSISTANCE. NO CHANGE IN SKIN. PATIENT REPOSITIONED T/O SHIFT. 3% SODIUM STARTED AT BEGINNING OF SHIFT AT 25 MLS/ HOUR BUT INCREASED LATER IN SHIFT TO 35 MLS/ HOUR AFTER SODIUM STATED AT 120. 2000 SODIUM LAB ORDERED- BHAT TO BE CALLED WITH RESULTS. PATIENT'S DAUGHTER AND FRIEND IN TO SEE HIM DURING DAY. BED LOW, CALL LIGHT IN REACH. REPORT HAS BEEN GIVEN TO ASSUMING NURSE, YUMIKO NOLAND.
--- NOTE | 2018-11-21 23:00 | NUR ---
URINARY RETENTION RN ASSISTING PT WITH URINAL [id number]. PT STATES HE IS FINISHED, BUT THEN SAYS THAT HE NEEDS TO URINATE AGAIN. VOIDING APPROXIMATELY 25-75CC AT A TIME. PT IS RESTLESS AND UNCOMFORTABLE, STATING THAT HE NEEDS "TO GO." BLADDER SCAN DONE AT THIS TIME- SHOWS >600 ON MULTIPLE SCANS. WILL NOTIFY MD AND PLACE KOEHLER CATHETER.
--- NOTE | 2018-11-21 23:34 | NUR ---
URINARY RETENTION/LABS SODIUM LEVEL CALLED TO DR. BHAT. NEW ORDERS RECEIVED. ALSO NOTIFIED MD OF URINARY RETENTION AND BLADDER SCAN OF >640. #16 KOEHLER PLACED AT THIS TIME- 650CC MAMADOU URINEOUT IMMEDIATELY. PT IS LESS ANXIOUS/RESTLESS AFTERWARDS.
[2018-11-22 03:04] LABS: Hematocrit 40.9 % (37.0-53.0); Hemoglobin 13.9 g/dL (13.5-17.5)
[2018-11-22 03:24] LABS: Albumin, Blood 2.9 g/dL (3.4-5.0); Anion Gap 11 mmol/L (6-16); Blood Urea Nitrogen 82 mg/dL (8-24); Bun/Creatinine Ratio 34.5 (12.0-20.0); CO2, Blood 24 mmol/L (21-32); Calcium, Blood 8.1 mg/dL (8.5-10.1); Chloride, Blood 90 mmol/L (98-108); Creatinine, Blood 2.38 mg/dL (0.60-1.20); Glomerular Filtration Rate 28 (60-); Glucose, Blood 176 mg/dL (70-99); Magnesium, Blood 2.2 mg/dL (1.6-2.4); Phosphorus, Blood 3.9 mg/dL (2.5-4.9); Potassium, Blood 3.9 mmol/L (3.5-5.5); Sodium, Blood 125 mmol/L (136-145)
--- NOTE | 2018-11-22 03:40 | NUR ---
LABS CALLED TO AM LABS CALLED TO AT THIS TIME- PLAN IS TO DC 3%NS IN TWO HOURS.
--- NOTE | 2018-11-22 06:51 | NUR ---
SHIFT SUMMARY NO ACUTE CHANGES DURING NOC. PT CONTINUES TO BE ORIENTED TO SELF AND TO PLACE. FORGETFUL AND REQUIRES FREQUENT REMINDERS THAT HE IS ON A FLUID RESTRICTION AND IS UNABLE TO GET OUT OF BED AT THIS TIME. CALLS OUT FOR HELP FREQUENTLY. CONTINUOUSLY ASKING FOR WATER. PT IS VERY [place]. C/O LEFT HIP AND GENERAL PAIN- MEDICATED WITH TRAMADOL X 2 DOSES AND NORCO X 1 DOSE. SBP 80-100s. MONITOR SHOWS PACED RHYTHM. KOEHLER PLACED DURING SHIFT D/T URINARY RETENTION- 1050CC TOTAL FROM KOEHLER CATHETER. 3%NS OFF AT 0530 PER ORDER. NS TKO. REFUSED PAS T/O MOST OF NOC. DR. BHAT IN TO SEE PT AND NEW ORDERS RECEIVED. WILL REPORT TO DAY SHIFT RN.
[2018-11-22 07:44] LABS: BASOPHILS ABSOLUTE AUTO 0.01 K/mm3 (0.00-0.23); BASOPHILS PERCENT AUTO 0 % (0-2); EOSINOPHILS ABSOLUTE AUTO 0.01 K/mm3 (0.00-0.68); EOSINOPHILS PERCENT AUTO 0 % (0-6); Hematocrit 41.7 % (37.0-53.0); Hemoglobin 13.9 g/dL (13.5-17.5); IMMATURE GRAN ABSOLUTE AUTO 0.11 K/mm3 (0.00-0.10); IMMATURE GRAN PERCENT AUTO 1 % (0-1); LYMPHOCYTES ABSOLUTE AUTO 0.57 K/mm3 (0.84-5.20); LYMPHOCYTES PERCENT AUTO 5 % (21-46); MONOCYTES ABSOLUTE AUTO 1.25 K/mm3 (0.16-1.47); MONOCYTES PERCENT AUTO 10 % (4-13); Mean Corpuscular HGB 28.8 pg (26.0-34.0); Mean Corpuscular HGB Conc 33.3 g/dL (31.5-36.5); Mean Corpuscular Volume 86 fL (80-100); NEUTROPHILS ABSOLUTE AUTO 10.27 K/mm3 (1.96-9.15); NEUTROPHILS PERCENT AUTO 84 % (41-73); Platelet Count 101 K/mm3 (150-400); RDW Coefficient Variation 20.6 % (11.7-14.2); RDW Standard Deviation 63.5 fL (35.1-46.3); Red Blood Cell Count 4.83 M/mm3 (4.30-5.90); White Blood Cell Count 12.22 K/mm3 (4.00-11.30)
[2018-11-22 07:51] LABS: Mean Platelet Volume 11.5 fL (9.1-12.4)
--- NOTE | 2018-11-22 08:00 | NUR ---
INITIAL ASSESSMENT PATIENT RESTING QUIETLY WITH EYES CLOSED UPON ENTERING ROOM. PATIENT VERY HARD OF HEARING. PATIENT ONLY ORIENTED TO SELF AND FOLLOWING DIRECTIONS THIS AM. PATIENT IRRITABLE AND ANXIOUS AT TIMES. PATIENT APPEARS A LITTLE LETHARGIC, CLOSING EYES AFTER EACH QUESTION ANSWERED. PATIENT HAS POOR SHORT TERM MEMORY. PATIENT AFEBRILE. PATIENT COMPLAINING OF L HIP/ GENERAL PAIN. PATIENT REPOSITIONED AND APPEARS MORE COMFORTABLE. PATIENT SATTING 90% AND GREATER ON RA. LUNGS CLEAR T/O, DIMINISHED IN LOWER LOBES. PATIENT 100% V PACED, OCCASIONALLY A PACED. HR 60S TO 70S. SBP 80S TO 90S. PULSES 1+ IN FEET. DIGITS AND BILAT FEET CYANOTIC, HOWEVER CAP REFILL IS UNDER 3 SECONDS. PATIENT REFUSING SCDS. ABDOMEN SOFT, NONTENDER, NONDISTENDED, WITH HYPERACTIVE BS NOTED. LAST BM DOCUMENTED ON THE . PATIENT HAS POOR APPETITE BUT IS TOLERATING FOOD AND FLUID WELL. KOEHLER PLACED DURING LEATHER GRAINER FOR RETENTION- DRAINING MAMADOU COLORED URINE. SKIN FRAGILE. COCCYX REDDENED. PACEMAKER TO LEFT CHEST WALL. SKINFOLDS OF GROIN REDDENED. SCATTERED SCABS AND BRUISES NOTED. NS TKO. BED LOW, CALL LIGHT IN REACH. WILL CONTINUE TO MONITOR PATIENT FREQUENTLY THROUGHOUT SHIFT.
[2018-11-22 08:09] LABS: Source, Urine Catheter
[2018-11-22 08:11] LABS: Bilirubin, Urine Neg (Neg); Blood, Urine 4+ (Neg); Glucose Qualitative, Urine Neg (Neg); Ketones, Urine Neg (Neg); Leukocyte Esterase, Urine 3+ (Neg); Nitrite, Urine Neg (Neg); Protein, Urine 2+ (Neg); Specific Gravity, Urine 1.015 (1.003-1.022); Urobilinogen, Urine NORM (Normal)
[2018-11-22 08:16] LABS: Appearance, Urine Clear (Clear); Color, Urine Yellow (P-Yellow)
[2018-11-22 08:18] LABS: Bacteria Mod /hpf; Squamous Epithelial Cells Few /hpf (Few); White Blood Cells, Urine TNTC /hpf (0-5)
[2018-11-22 08:19] LABS: Granular Casts TNTC /lpf (0)
[2018-11-22 08:22] LABS: Red Blood Cells, Urine TNTC /hpf (0-2)
[2018-11-22 08:24] LABS: Hyaline Casts 0-2 /lpf (0-2)
--- NOTE | 2018-11-22 09:15 | NUR ---
OCCUPATIONAL THERAPY IN WORKING WITH PATIENT.
--- NOTE | 2018-11-22 09:15 | NUR ---
PHYSCIAL THERAPY WORKING WITH PATIENT.
--- NOTE | 2018-11-22 10:30 | NUR ---
DR. BLAS HERE TO SEE PATIENT. UPDATED ON PATIENT CONDITION. INFORMED THAT PATIENT HAS BEEN LETHARGIC AND CONFUSED TODAY. PATIENT HAS BEEN SLEEPING ON AND OFF. PATIENT AWAKE AND GRUMBLING AND THEN SOON AFTER SLEEPING VERY HARD/ DIFFICULT TO WAKE. INFORMED THAT PATIENT'S BLOOD PRESSURES HAVE BEEN SOFT- SBPS 80S TO 90S. DOCTOR STATED SHE IS OKAY WITH MAPS OF [address] INFORMED THAT [address]. BHAT ORDERED FOR LASIX QOD THIS AM. PATIENT STATED YESTERDAY, WHEN LESS CONFUSED, THAT SBPS NORMALLY 80S TO 90S. FAX SENT TO [place] TO GET RECENT MEDICAL INFORMATION INCLUDING VS. INFORMED THAT PATIENT'S FINGERS, FEET AND TOES ARE CYANOTIC.
--- NOTE | 2018-11-22 12:00 | NUR ---
PATIENT SLEEPING SOUNDLY UPON ENTERING ROOM. PATIENT REMAINS CONFUSED, IRRITABLE WITH CARE. PATIENT REMAINS LETHARGIC. PATIENT AFEBRILE. NO CURRENT COMPLAINTS OF PAIN. PATIENT REMAINS SATTING WELL ON RA. PATIENT PACED, HR 50S TO 70S. SBP 80S TO 90S. 2+ THIGH EDEMA NOTED. KOEHLER DRAINING DARK YELLOW URINE WITH SEDIMENT NOTED. PATIENT RECEIVED COMPLETE BED BATH. NO OTHER ACUTE CHANGES TO NOTE ON AT THIS TIME. WILL CONTINUE TO MONITOR.
--- NOTE | 2018-11-22 12:38 | NUR ---
PALLIATIVE CARE NURSE, KERVIN, HERE SPEAKING WITH PATIENT.
--- NOTE | 2018-11-22 12:50 | NUR ---
PHYSICAL THERAPY IN WORKING WITH PATIENT.
--- NOTE | 2018-11-22 12:56 | NUR ---
Pt is A&Ox2 and reports severe genralized pain. He states the pain is bad enough to where I can hardly stand it. Attempted to engage in therapeutic discussion regarding goals of care. Encouraged Pt to express concerns and fears. Pt continues to struggle with hearing and appears to become more confused. Pt states "I'm worried about my ". Aske Pt where his is and Pt's states "here". This RN ended visit to allow Pt to rest. Spoke with bedside nurse Kathi regarding conversaiton and reports Pt's has . Kathi reports she will contact palliative care when Pt's daughter arrives to visit. Palliative Care will remain available.
--- NOTE | 2018-11-22 14:13 | NUR ---
CD WITH ME MEDICAL RECORDS RECEIVED IN ICU. DR. BLAS INFORMED THAT DISC ARRIVED AND THAT FROM 07/15/18-07/20/18 SBP RANGED FROM 101 TO 129 AND THAT FROM 08/03/18- 11/14/18 SBP RANGED FROM 89 TO 115. DOCTOR STATED THAT SHE WOULD ORDER CARDIO CONSULT. NO OTHER ORDERS OBTAINED AT THIS TIME.
--- NOTE | 2018-11-22 15:22 | NUR ---
PATIENT REMAINS CONFUSED, ALTHOUGH IS NOW ORIENTED TO TOWN AND THAT HE IS IN THE HOSPITAL. PATIENT REMAINS SATTING WELL ON RA. PATIENT REMAINS PACED, HR 50S TO 70S. SBP IN THE 90S. NO ACUTE CHANGES TO NOTE ON AT THIS TIME. WILL CONTINUE TO MONITOR.
--- NOTE | 2018-11-22 16:45 | NUR ---
DR. WU IN ROOM TO SEE PATIENT. POINTED OUT THAT LEFT FOOT DARK PURPLE IN COLOR. FOOT MUCH DARKER IN COLOR THAN WHEN NURSE PREVIOUSLY IN ROOM. PREVIOUSLY, BILAT FEET LIGHT PURPLE IN COLOR. DOCTORS AWARE. CAP REFILL REMAINS LESS THAN 3 SECONDS. NURSE ASSISTING PRIMARY NURSE STATED THAT PATIENT'S LEFT LEG HANGING DOWN FROM BED UPON ENTERING ROOM AND THAT SHE PLACED LEFT LEG BACK UP ON BED AFTER NOTICING. 1700: FOOT WRAPPED IN WARM BLANKET. 1720: DR. KIRK IN ROOM TO SEE PATIENT. DOCTOR ASSESSED FEET AND UPDATED BY NURSE. LEFT FOOT STILL DARK PURPLE IN COLOR BUT LESS HAS IMPROVED SOME IN COLOR SINCE BEING PLACED BACK ON BED. CAP REFILL REMAINS LESS THAN 3 SECONDS. LEFT FOOT, TIBIAL PULSE DOPPLER, D PEDIS PULSE ABSENT. STATES HE WILL START ON HEPARIN AND REASSESS TOMORROW.
--- NOTE | 2018-11-22 18:12 | NUR ---
PATIENT'S DAUGHTER CALLED AND INFORMED OF PATIENT'S DARKENING OF PATIENT'S LEFT FOOT FROM EARLIER IN SHIFT. DAUGHTER, HARSHAD, REPORTS THAT IT IS NORMAL FOR PATIENT'S FEET AND FINGERS TO BECOME PURPLE OFF AND ON. DAUGHTER INFORMED THAT PURPLE COLOR OF LEFT FOOT IS DARKER THAN WAS EARLIER IN SHIFT. DAUGHTER INFORMED THAT DR. WU AND DR. KIRK BOTH SAW PATIENT. INFORMED THAT PATIENT STARTED ON HEPARIN DRIP AND THAT DR. KIRK STATED HE WOULD RE-EVALUATE PATIENT IN THE AM. DAUGHTER APPRECIATIVE OF CALL.
--- NOTE | 2018-11-22 18:24 | NUR ---
SHIFT SUMMARY PATIENT SLEPT ON AND OFF T/O SHIFT. PATIENT EITHER SLEEPING VERY HARD/ DIFFICULT TO WAKE OR AWAKE AND GRUMBLING THAT IN PAIN AND WANTING WATER. PATIENT VERY [place]. PATIENT CONFUSED T/O SHIFT. PATIENT ALERT ONLY TO SELF AND FOLLOWING DIRECTIONS AT BEGINNING OF SHIFT. PATIENT LATER AWARE THAT HE WAS IN [place] AND AT THE HOSPITAL. PATIENT CONTINUES TO ASK HOW IS, ALTHOUGH IS . PATIENT HAS POOR SHORT TERM MEMORY. PATIENT HAS SOME TREMERING OF EXTREMITIES AND UPPER BODY NOTED. PATIENT'S DAUGHTER STATED THAT THIS IS NORMAL FOR PATIENT. PATIENT HAS REMAINED AFEBRILE. PATIENT ON COOL SIDE. ROOM TEMPERATURE INCREASED T/O DAY, BLANKETS APPLIED TO PATIENT SEVERAL TIMES BUT PATIENT MAD WHEN WAKES AND STATES THAT HE DOES NOT WANT ANYTHING ON HIS LEGS. PATIENT COMPLAINED OF L HIP AND GENERAL PAIN WHEN AWAKE. PATIENT GIVEN PRN PAIN MED OT. ALL OTHER TIMES PATIENT ABLE TO BE REPOSITIONED AND FALL BACK ASLEEP. PATIENT REMAINED SATTING 90% AND GREATER ON RA. PATIENT REMAINED PACED, HR 50S TO 60S. SBP 80S TO 90S. DR. BLAS STATED THAT OK WITH MAPS [address] WU AND DR. KIRK CONSULTED THIS SHIFT FOR DARKENING OF LEFT FOOT. BILAT FEET PURPLE IN COLOR WITH GOOD CAP REFILL IN AM. CAP REFILL REMAINS LESS THAN [address] BILAT FEET. [address] KIRK STARTED PATIENT ON HEPARIN DRIP AND WILL REASSESS HIM IN MORNING. DAUGHTER CALLED AND UPDATED ON PATIENT CONDITION. PATIENT REFUSED SCDS ALL SHIFT. PATIENT REMAINS WITH PITTING AND NONPITTING EDEMA TO BUES, BILAT ANKLES, BLES, AND THIGHS. REPORTED THAT EDEMA IS MUCH IMPROVED. PATIENT HAS NOT HAD BM SINCE THE 8TH. MOM GIVEN THIS SHIFT. PATIENT EATING AND DRINKING WITH NO PROBLEMS. PATIENT HAS POOR APPETITE. PATIENT ATE SOME FRUIT AND ABLE TO GET TWO ENSURES DOWN DURING DAY, IN ADDITION TO WATER. KOEHLER DRAINED ADEQUATE AMOUNT OF DARK YELLOW URINE WITH SEDIMENT NOTED. PATIENT RECEIVED 20 MG IV LASIX THIS AM. HEPARIN INFUSING AT 13 UNITS/ KG/ HOUR. 3% SALINE DRIP STOPPED IN INSPECTOR DIALS BY FIREWALL SECURITY ENGINEER AND PATIENT PLACED ON SALT TABS. PT/OT WORKED WITH PATIENT. PATIENT RECEIVED COMPLETE BED BATH THIS SHIFT. BED LOW, CALL LIGHT IN REACH. PATIENT SLEEPING SOUNDLY WITH NO COMPLAINTS AT THIS TIME. [facility]UR[facility] ENGINEER NURSE SHORTLY.
--- NOTE | 2018-11-22 19:00 | NUR ---
ASSUMED CARE ASSUMED CARE OF PATIENT. SLEEPING WHEN UNDISTURBED. ROUSES TO LOUD VERBAL STIMULI. ORIENTED TO SELF AND TO THE FACT THAT HE IS IN THE HOSPITAL, BUT NOT TO WHICH HOSPITAL. FOLLOWS DIRECTIONS. ANDREAFSKI. POOR SHORT TERM MEMORY. PT CALLS OUT "HELP ME" FREQUENTLY. ATTEMPTS TO ASSIST WITH REPOSITIONING. MODERATE WEAKNESS NOTED. MOVES ALL EXTREMITIES. OCCASIONALLY THROWS LEGS OVER SIDE OF BED. MONITOR SHOWS PACED RHYTHM, RATE 60s. SBP MID-80s. KOEHLER PATENT AND DRAINING MAMADOU URINE. HEPARIN GTT INFUSING @ 13UNITS/KG/HR PER ORDER. EXTREMITIES COOL AND PALE. BILATERAL FEET WITH PURPLE DISCOLORATION L>R. RIGHT FOOT WITH DOPPLER DP/PT PULSES. LEFT FOOT WITH PT DOPPLER PULSE ONLY. CAP REFILL IS <3 SECONDS. SEE SHIFT ASSESSMENT FOR FULL ASSESSMENT.
[2018-11-22 20:05] LABS: International Normalized Ratio 1.72; Prothrombin Time Results 17.4 Sec (9.7-11.5)
--- NOTE | 2018-11-23 00:35 | NUR ---
HEPARIN GTT CRITICAL LAB (PTT) NOTIFICATION FROM LAB. PHARMACY NOTIFIED. HEPARIN ON HOLD AT THIS TIME- WILL RESUME IN ONE HOUR AT 11UNITS/KG/HR.
[2018-11-23 04:10] LABS: BASOPHILS ABSOLUTE AUTO 0.01 K/mm3 (0.00-0.23); BASOPHILS PERCENT AUTO 0 % (0-2); EOSINOPHILS ABSOLUTE AUTO 0.11 K/mm3 (0.00-0.68); EOSINOPHILS PERCENT AUTO 1 % (0-6); Hematocrit 41.8 % (37.0-53.0); IMMATURE GRAN ABSOLUTE AUTO 0.09 K/mm3 (0.00-0.10); IMMATURE GRAN PERCENT AUTO 1 % (0-1); LYMPHOCYTES ABSOLUTE AUTO 0.69 K/mm3 (0.84-5.20); LYMPHOCYTES PERCENT AUTO 6 % (21-46); MONOCYTES ABSOLUTE AUTO 1.54 K/mm3 (0.16-1.47); MONOCYTES PERCENT AUTO 14 % (4-13); Mean Corpuscular HGB Conc 33.5 g/dL (31.5-36.5); Mean Corpuscular Volume 87 fL (80-100); Mean Platelet Volume 11.1 fL (9.1-12.4); NEUTROPHILS ABSOLUTE AUTO 8.96 K/mm3 (1.96-9.15); NEUTROPHILS PERCENT AUTO 79 % (41-73); Platelet Count 94 K/mm3 (150-400); RDW Coefficient Variation 20.3 % (11.7-14.2); RDW Standard Deviation 63.5 fL (35.1-46.3); Red Blood Cell Count 4.83 M/mm3 (4.30-5.90)
[2018-11-23 04:25] LABS: Albumin, Blood 2.8 g/dL (3.4-5.0); Anion Gap 11 mmol/L (6-16); Blood Urea Nitrogen 74 mg/dL (8-24); Bun/Creatinine Ratio 33.9 (12.0-20.0); CO2, Blood 26 mmol/L (21-32); Calcium, Blood 8.2 mg/dL (8.5-10.1); Chloride, Blood 93 mmol/L (98-108); Creatinine, Blood 2.18 mg/dL (0.60-1.20); Glomerular Filtration Rate 31 (60-); Glucose, Blood 137 mg/dL (70-99); Magnesium, Blood 2.4 mg/dL (1.6-2.4); Phosphorus, Blood 3.2 mg/dL (2.5-4.9); Potassium, Blood 2.9 mmol/L (3.5-5.5); Sodium, Blood 130 mmol/L (136-145)
--- NOTE | 2018-11-23 06:31 | NUR ---
SHIFT SUMMARY NO ACUTE CHANGES. SLEPT WHEN UNDISTURBED. ROUSES TO VERBAL STIMULI. ORIENTED TO SELF AND TO THE FACT THAT HE IS IN THE HOSPITAL. VERY [place]. COOPERATIVE WITH CARE. CALLS OUT "HELP ME" FREQUENTLY. CONTINUES WITH C/O LEFT HIP AND GENERAL PAIN- MEDICATED WITH TRAMADOL PO X 1 DOSE. FREQUENTLY ASKS FOR WATER. REQUIRES FREQUENT REMINDERS OF FLUID RESTRICTION. ATTEMPTS TO HELP WITH REPOSITIONING, BUT IS MODERATELY WEAK. MONITOR SHOWS VENTRICULARLY PACED AND OCCASIONALLY ATRIALLY PACED RHYTHM. SBP 80-90s, MAP >60. AFEBRILE T/O SHIFT. RA SATS STABLE. POOR APPETITE CONTINUES, BUT TAKES WATER WITHOUT DIFFICULTY. KOEHLER PATENT AND DRAINING DARK YELLOW URINE. BILATERAL FEET ARE PURPLISH-RED AND COOL TO TOUCH, L>R. RIGHT DP PULSE IS 1+. RIGHT PT AND LEFT DP/PT WITH DOPPLER ONLY. HEPARIN GTT CONTINUES @ 11UNITS/KG/HR- NEXT PTT AT 0700. KCL IVPB REPLACEMENT STARTED PER ORDER. WILL REPORT TO DAY SHIFT RN WHEN AVAILABLE.
--- NOTE | 2018-11-23 07:10 | NUR ---
ASSUMED CARE REPORT FROM ANNY CALDERON. PATIENT AWAKE, WITH EYES CLOSED. SIPS OF WATER GIVEN. PEDAL PULSES OBTAINED BY DOPLER. LEFT TOES DUSKY AND COOL TO TOUCH. RIGHT TOES RED AND WARM TO TOUCH. HEPARIN GTT AT 11 UNITS/HOUR.
--- NOTE | 2018-11-23 08:58 | NUR ---
OOB TO CHAIR WITH ASSISTANCE FROM PHYSICAL THERAPIST. PATIENT CALLS OUT "HELP ME" BUT DOESN'T RECALL WHY WHEN ASKED, OR EVEN THAT HE SAID IT.
--- NOTE | 2018-11-23 09:31 | NUR ---
PATIENT SWALLOWED PILLS WHOLE WITHOUT DIFFICULTY (EVEN LARGE NAC CAPSULES) CRUSHED SODIUM PILL IS BURNING PATIENT'S TONGUE AND APPLESAUCE MAKES IT WORSE. PATIENT SAYS LEFT HIP IS SORE, NOT RIGHT HIP. LIDOCAINE PATCH PLACED ON LEFT HIP.
--- NOTE | 2018-11-23 10:17 | NUR ---
MD VISIT DR. BLAS IN
--- NOTE | 2018-11-23 10:45 | NUR ---
Review of patient and prognosis with nurisng and physician, review of prognosis. physician spoke with daughter will meet with her today. theraputic time with patient. hand rub and coaching to relax neck support given. will review pt AD with daughter.
--- NOTE | 2018-11-23 10:53 | NUR ---
PER DR. BLAS DAUGHTER IS ASKING IF PATIENT COULD BE PUT ON DOBUTAMINE FOR HIS BP THAT HAS WORKED FOR HIM IN THE PAST. MESSAGE LEFT FOR DR. WU
--- NOTE | 2018-11-23 11:15 | NUR ---
DR. WU WILL BE AVAILABLE BETWEEN 12 AND 1 PM TODAY TO SPEAK TO DAUGHTER. SHE WAS ADVISED AND IS ON HER WAY IN. PATIENT PUT BACK IN BED WITH LIFT FOR VENOUS ULTRA SOUND STUDIES. POSITIVE FOR DVT ON RIGHT SO FAR.
--- NOTE | 2018-11-23 11:20 | NUR ---
UPDATED DR. BLAS. LEFT MESSAGE FOR DR. WU THAT FAMILY IS ON THEIR WAY NOW.
[2018-11-23 11:44] LABS: Albumin, Blood 2.4 g/dL (3.4-5.0); Bilirubin, Direct 1.5 mg/dL (0.0-0.3); Bilirubin, Indirect 0.6 mg/dL (0.1-0.7); Bilirubin, Total 2.1 mg/dL (0.1-1.0); Globulin, Blood 2.5 g/dL (2.2-4.0); Total Protein, Blood 4.9 g/dL (6.4-8.2)
--- NOTE | 2018-11-23 13:05 | NUR ---
DR. WU IN TO UPDATE FAMILY. PATIENT IS MORE INTERACTIVE WITH FAMILY AT BEDSIDE. EYE DROPS GIVEN FOR LIGHT SENSITIVITY.
--- NOTE | 2018-11-23 13:20 | NUR ---
UPDATE ON BILATERAL DVT'S TO DR. BLAS AND OCCLUSION OF LEFT LEG ARTERY. MESSAGE LEFT FOR DR. KIRK TO STOP BY AFTER CASE.
--- NOTE | 2018-11-23 14:15 | NUR ---
DR. KIRK IN. WILL TALK TO DR. WU
--- NOTE | 2018-11-23 17:04 | NUR ---
ALL SEDATING MEDS HAVE BEEN HELD, BUT PATIENT HAS SLEPT THROUGHOUT THE DAY, WITH BLINDS OPEN AND ATTEMPTS TO KEEP HIM AWAKE. RESPONDED TO FAMILY WHEN THEY WERE PRESENT. HAS NOT C/O PAIN. WILL FEED PATIENT DINNER THERE HAVE BEEN NO ORDERS FROM DR. KIRK.
--- NOTE | 2018-11-23 18:02 | NUR ---
PATIENT DIDN'T WANT ANYTHING FOR DINNER EXCEPT FRUIT. HE ATTEMPTED TO USE METAL FORK WITH OCCUPATIONAL THERAPY FOAM, BUT IT WAS TOO HEAVY AND HIS HAND SHOOK TOO MUCH. DID BETTER WITH PLASTIC FORK.
--- NOTE | 2018-11-23 19:13 | NUR ---
REPORT GIVEN TO ANGELES Singer RN.
--- NOTE | 2018-11-23 20:28 | NUR ---
LEFT A/C IV LEAKING BUT FLUSHES WELL. HEPARIN gtt SWITCHED FROM LEFT HAND TO RIGHT POWERGLIDE.
--- NOTE | 2018-11-23 20:32 | NUR ---
REPORT FROM ESTHER RN. PT ASLEEP BUT AWAKENED TO VOICE. VSS. LS CLEAR BILAT, 100% ON RA. LOWER EXT ASSESSED BY BOTH RN USING DOPPLER. LEFT PEDAL THREADY, TIBIAL BY DOPPLER. RIGHT PEDAL WITH DOPPLER AND WAS STRONGER THAN LEFT PEDAL, TIBIAL BY DOPPLER. PT GIVEN SIPS OF WATER AND IS WITHIN DAILY LIMIT. PT OTHERWISE REQUESTING TO LET SLEEP. PT REPOSITIONED AND LOWER EXTREM. ELEVATED ON PILLOWS. WILL CONTINUE TO MONITOR.
--- NOTE | 2018-11-23 22:22 | NUR ---
aPTT 104.7. PHARMACY NOTIFIED AND WILL PUT ORDER IN TO REDUCE HEPARIN gtt TO 8.5 u/kg/hr. HEPARIN gtt REDUCED TO THE 8.5u/kg/hr.
--- NOTE | 2018-11-24 03:48 | NUR ---
MOUTH AND LIP PAIN. PT AWAKENS EASILY TO RN AT BEDSIDE DURING LAB DRAW. PT C/O MOUTH AND LIP PAIN AND REQUESTED WATER. PT TOUNGUE AND LIPS APPEAR RED. NO SORES OR COATING NOTED BUT WILL PASS ON TO DAY RN.
[2018-11-24 04:00] LABS: BASOPHILS PERCENT AUTO 0 % (0-2); EOSINOPHILS ABSOLUTE AUTO 0.09 K/mm3 (0.00-0.68); EOSINOPHILS PERCENT AUTO 1 % (0-6); Hematocrit 42.5 % (37.0-53.0); Hemoglobin 13.8 g/dL (13.5-17.5); IMMATURE GRAN ABSOLUTE AUTO 0.09 K/mm3 (0.00-0.10); IMMATURE GRAN PERCENT AUTO 1 % (0-1); LYMPHOCYTES ABSOLUTE AUTO 0.76 K/mm3 (0.84-5.20); LYMPHOCYTES PERCENT AUTO 8 % (21-46); MONOCYTES ABSOLUTE AUTO 1.21 K/mm3 (0.16-1.47); MONOCYTES PERCENT AUTO 13 % (4-13); Mean Corpuscular HGB 28.6 pg (26.0-34.0); Mean Corpuscular HGB Conc 32.5 g/dL (31.5-36.5); Mean Corpuscular Volume 88 fL (80-100); Mean Platelet Volume 11.4 fL (9.1-12.4); NEUTROPHILS ABSOLUTE AUTO 7.17 K/mm3 (1.96-9.15); NEUTROPHILS PERCENT AUTO 77 % (41-73); Platelet Count 71 K/mm3 (150-400); RDW Coefficient Variation 20.3 % (11.7-14.2); RDW Standard Deviation 64.5 fL (35.1-46.3); Red Blood Cell Count 4.83 M/mm3 (4.30-5.90); White Blood Cell Count 9.32 K/mm3 (4.00-11.30)
[2018-11-24 04:12] LABS: Alanine Aminotransfer (ALT/SGP 362 U/L (12-78); Albumin, Blood 2.6 g/dL (3.4-5.0); Alk Phos 248 U/L (50-136); Anion Gap 10 mmol/L (6-16); Aspartate Aminotrans (AST/SGOT 94 U/L (12-37); Bilirubin, Total 2.2 mg/dL (0.1-1.0); Blood Urea Nitrogen 61 mg/dL (8-24); Bun/Creatinine Ratio 30.8 (12.0-20.0); CO2, Blood 27 mmol/L (21-32); Calcium, Blood 7.8 mg/dL (8.5-10.1); Chloride, Blood 94 mmol/L (98-108); Creatinine, Blood 1.98 mg/dL (0.60-1.20); Globulin, Blood 2.5 g/dL (2.2-4.0); Glomerular Filtration Rate 35 (60-); Glucose, Blood 117 mg/dL (70-99); Magnesium, Blood 2.2 mg/dL (1.6-2.4); Phosphorus, Blood 3.2 mg/dL (2.5-4.9); Potassium, Blood 3.1 mmol/L (3.5-5.5); Sodium, Blood 131 mmol/L (136-145); Total Protein, Blood 5.1 g/dL (6.4-8.2)
--- NOTE | 2018-11-24 05:52 | NUR ---
CALL FROM DR. BHAT AND UPDATED. NEW ORDER FOR KCL 30 mEq IV NOW.
--- NOTE | 2018-11-24 07:13 | NUR ---
ASSUMED CARE REPORT FROM ANGELES Singer RN. UNABLE TO OBTAIN DOPPLER ON LEFT FOOT. PITTING EDEMA, CYANOTIC, COOL TO THE TOUCH.
--- NOTE | 2018-11-24 07:54 | NUR ---
MD VISIT DR. BLAS IN
--- NOTE | 2018-11-24 08:15 | NUR ---
MESSAGE LEFT ON DR. KIRK'S CELL PHONE RE: LACK OF DOPPLER PULSES ON LEFT FOOT
--- NOTE | 2018-11-24 08:58 | NUR ---
MD VISIT DR. WARNER IN. HE IS ATTEMPTING TO REACH DR. KIRK
--- NOTE | 2018-11-24 10:08 | NUR ---
DAUGHTER, HARSHAD, UPDATED ON PLAN TO TRANSFER TO [facility]
--- NOTE | 2018-11-24 10:48 | NUR ---
REPORT GIVEN TO ANNY LOREDO AT [facility] AT 1038. [facility] OUT THE DOOR AT 1050 WITH HEPARIN GTT. PATIENT IS SLEEPY.
--- NOTE | 2018-11-24 11:06 | NUR ---
Review of plan of care with shoaib. daughter notified by staff.
--- NOTE | 2018-11-24 12:09 | NUR ---
PATIENT HEARING AIDS LEFT IN ROOM. HARSHAD (DAUGHTER) NOTIFIED. SHE WILL PICK THEM UP TODAY OR TOMORROW
[2018-11-26 14:06] LABS: HEPARIN INDUCED PLATELET AB 0.168 OD (0.000-0.400)
== END 2018-11-24 10:50 | disposition short-term general hospital (02) | DRG 682 ==
LOC: ER 18:16 → PCU 21:03 → ICUE 21:03 → PCU 23:37 → ICUW 11-21 08:33 → ICUE 11-22 03:05
PROVIDERS: Emergency Medicine; Internal Medicine; Internal Medicine Nephrology; Nurse Practitioner Acute Care; Pharmacist; ADMIT Hospitalist
DX: N17.0 Acute kidney failure with tubular necrosis (principal); R57.0 Cardiogenic shock; E87.1 Hypo-osmolality and hyponatremia; I50.22 Chronic systolic (congestive) heart failure; N39.0 Urinary tract infection, site not specified; I13.0 Hypertensive heart and chronic kidney disease with heart failure and stage 1 through stage 4 chronic kidney disease, or unspecified chronic kidney disease; I82.431 Acute embolism and thrombosis of right popliteal vein; I82.412 Acute embolism and thrombosis of left femoral vein; G93.40 Encephalopathy, unspecified; I25.5 Ischemic cardiomyopathy; I48.2 Chronic atrial fibrillation; H40.9 Unspecified glaucoma; I25.10 Atherosclerotic heart disease of native coronary artery without angina pectoris; M10.9 Gout, unspecified; Z95.810 Presence of automatic (implantable) cardiac defibrillator; Z95.1 Presence of aortocoronary bypass graft; M16.12 Unilateral primary osteoarthritis, left hip; K21.9 Gastro-esophageal reflux disease without esophagitis; G89.4 Chronic pain syndrome; Z79.4 Long term (current) use of insulin; Z79.82 Long term (current) use of aspirin; E86.0 Dehydration; E78.5 Hyperlipidemia, unspecified; I71.4 Abdominal aortic aneurysm, without rupture; E88.09 Other disorders of plasma-protein metabolism, not elsewhere classified; E87.6 Hypokalemia; B95.7 Other staphylococcus as the cause of diseases classified elsewhere; I51.3 Intracardiac thrombosis, not elsewhere classified; I95.9 Hypotension, unspecified; I99.8 Other disorder of circulatory system; D69.6 Thrombocytopenia, unspecified; N18.3 Chronic kidney disease, stage 3 (moderate); E11.22 Type 2 diabetes mellitus with diabetic chronic kidney disease; Z95.5 Presence of coronary angioplasty implant and graft; E11.51 Type 2 diabetes mellitus with diabetic peripheral angiopathy without gangrene
CPT/HCPCS: 36415; 51702; 51798; 71045; 73502; 76770; 80048; 80053; 80069; 80076; 81001; 81050; 82533; 82550; 82947; 83605; 83690; 83735; 83880; 84100; 84132; 84156; 84295; 84443; 84550; 85014; 85018; 85025; 85610; 85730; 86022; 87077; 87086; 87186; 93005; 93010; 93306; 93925; 93970; 94760; 96360; 96361; 97110; 97116; 97161; 97166; 97530; 97535; 99285-25; A9270-GY; C1751; G0103; J0696; J1644; J1650; J1940; J2405; J2765; J3480; J7030; J7050